=== PATIENT | female | born 1965 | race Caucasian/White ===

== ENCOUNTER 2021-07-06 07:52 | Outpatient (CLI) | payer BC, SELFPAY ==
--- NOTE | ~2021-07-06 | MR_ITS ---
EXAMINATION: MR ankle RT wo con DATE: 07/06/2021 09:06 INDICATION: Right Achilles tendinopathy. TECHNIQUE: Magnetic resonance imaging (MRI) of the right ankle was performed without intravenous cont rast. Sequences included sagittal, coronal, and axial proton-density weighted fast spin echo without and with fat saturation. COMPARISON: None. FINDINGS: Medial ankle ligaments: Deep and superficial deltoid ligaments as well as the spring ligament are normal. Lateral ankle ligaments: The anterior and posterior inferior tibiofibular ligaments are normal. The anterior talofibular, calc aneofibular and posterior talofibular ligaments are normal. Tendons: Is mild fusiform thickening and increased intrasubstance signal of the Achilles tendon centered appro ximately 4 cm above level of the calcaneal insertion. There is minimal surrounding increased signal c onsistent with mild peritendinitis. No evident tendon tear. Small amount of fluid consistent with mil d tenosynovitis surrounding the peroneus longus and brevis tendons. There is mild diffuse thickening of both tendons at the level of the retromalleolar groove consistent mild tendinopathy. In addition t here is a longitudinal split tear of the peroneus brevis tendon at this level. The tibialis anterior and extensor hallucis longus and extensor digitorum longus tendons are normal. Additional mild tenosy novitis extending along the otherwise normal tibialis posterior tendon. The flexor digitorum longus a nd flexor hallucis longus tendons are normal. Plantar fascia: Small plantar calcaneal spur at the calcaneal origin of the central component of the plantar aponeuro sis. The epiglottis otherwise unremarkable with no abnormal thickening or increased signal to suggest acute plantar fasciitis. Bones/other: Bone alignment is normal. No fracture or pathologic marrow replacing process. 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 There is additional small cyst likely an intraosseous ganglion cyst in the d istal fibula underlying the footplate of the posterior talofibular ligament. Fluid: Physiologic amount of fluid in the joint spaces. No other abnormal fluid collections. IMPRESSION: 1. Mild Achilles tendinosis with mild peritendinitis but without discrete tear. 2. Mild peroneal tenosynovitis with mild peroneus longus and brevis tendinopathy and longitudinal spl it tear of the peroneus brevis tendon. 2. Mild tibialis posterior tenosynovitis with normal tendon. Reviewed, dictated and finalized at location A. IMPRESSION: 1. Mild Achilles tendinosis with mild peritendinitis but without discrete tear. 2. Mild peroneal tenosynovitis with mild peroneus longus and brevis tendinopath y and longitudinal split tear of the peroneus brevis tendon. 2. Mild tibialis posterior tenosynovitis with normal tendon.
== END 2021-07-06 07:53 | disposition home or self-care (01) ==
PROVIDERS: PCP Internal Medicine; Visit Provider Podiatrist Foot & Ankle Surgery
DX: M76.61 Achilles tendinitis, right leg (principal); M76.71 Peroneal tendinitis, right leg
CPT/HCPCS: 73721